=== PATIENT | male | born 1985 | race African-American/Black ===

== ENCOUNTER 2023-07-02 19:15 | Emergency (ER) | payer MEDICAID ==
[~2023-07-02] VITALS: Ht 170.2 cm; Wt 72.7 kg
[2023-07-02 19:28] VITALS: BP 146/82; PULSE 80; RESP 18; TEMP 97.9
[2023-07-02] MEDS ORDERED: POVIDONE-IODINE 10% 15 ML SOLUTION UD TP ONE (20:00)
[2023-07-02] MEDS ORDERED: LIDOCAINE 1% 10 ML VIAL SQ ONE (20:00)
[2023-07-02] MEDS ORDERED: SULFAMETHOX/TRIMETH DS 800-160 MG/TABLET PO ONE (20:00)
[2023-07-02] MEDS ORDERED: BACTDSB PO (20:22)
[2023-07-02] MEDS ORDERED: KETOROLAC TROMETHAMINE 60 MG/2 ML VIAL IM ONE (20:30)
== END 2023-07-02 20:47 | disposition home or self-care (01) ==
LOC: EMS 19:16
DX: L02.01 Cutaneous abscess of face (principal); F17.210 Nicotine dependence, cigarettes, uncomplicated; F12.90 Cannabis use, unspecified, uncomplicated; F15.90 Other stimulant use, unspecified, uncomplicated
CPT/HCPCS: 99283; 10060; 96372; J1885; J3490

== ENCOUNTER 2023-07-04 20:04 | Emergency (ER) | payer MEDICAID ==
[~2023-07-04] VITALS: Ht 170.2 cm; Wt 72.7 kg
[~2023-07-04 20:04] MED LIST: BACTDSB PO
[2023-07-04 21:55] VITALS: BP 129/65; PULSE 69; RESP 13; TEMP 97.8
[2023-07-04] MEDS ORDERED: CEPH-558 PO (22:37)
[2023-07-04] MEDS ORDERED: ACET-2080 PO (22:37)
== END 2023-07-04 22:51 | disposition home or self-care (01) ==
LOC: EMS 20:05
DX: L02.01 Cutaneous abscess of face (principal); F17.210 Nicotine dependence, cigarettes, uncomplicated; F12.90 Cannabis use, unspecified, uncomplicated; F15.90 Other stimulant use, unspecified, uncomplicated
CPT/HCPCS: 99283; Z7502

== ENCOUNTER 2023-07-07 10:22 | Emergency (ER) | payer MEDICAID ==
[~2023-07-07] VITALS: Ht 170.2 cm; Wt 72.7 kg
[~2023-07-07 10:22] MED LIST changes: +ACET-2080 PO; +CEPH-558 PO
[2023-07-07] MEDS ORDERED: BACITRACIN 0.9 GM PACKET OINTMENT TP ONE (10:45)
[2023-07-07 11:11] VITALS: BP 129/83; PULSE 66; RESP 16; TEMP 97.7
== END 2023-07-07 11:22 | disposition home or self-care (01) ==
LOC: EMS 10:22
DX: L02.01 Cutaneous abscess of face (principal); F17.210 Nicotine dependence, cigarettes, uncomplicated; F12.90 Cannabis use, unspecified, uncomplicated; F15.90 Other stimulant use, unspecified, uncomplicated
CPT/HCPCS: 99282; Z7502; Z7610

== ENCOUNTER 2024-02-25 17:17 | Emergency (ER) | payer MEDICAID ==
[~2024-02-25] VITALS: Ht 170.2 cm; Wt 72.7 kg
[2024-02-25] MEDS: DOXYCYCLINE HYCLATE 100 MG TABLET PO ONE (22:33)
[2024-02-25] MEDS: CEPHALEXIN MONOHYDRATE 500 MG CAPSULE PO ONE (22:34)
[2024-02-25] MEDS ORDERED: DOXY-354 PO (22:39)
[2024-02-25 23:00] VITALS: BP 124/68; PULSE 65; RESP 16; TEMP 97.3
== END 2024-02-26 00:16 | disposition home or self-care (01) ==
LOC: EMS 17:22
DX: L02.01 Cutaneous abscess of face (principal); F17.210 Nicotine dependence, cigarettes, uncomplicated; F12.90 Cannabis use, unspecified, uncomplicated; F15.90 Other stimulant use, unspecified, uncomplicated
CPT/HCPCS: 10060; 99283